=== PATIENT | female | born 1980 | race African-American/Black ===

== ENCOUNTER → 2017-12-13 | Outpatient (CLI) | payer OTHER | LOC: RAD 08:28 | DX: N64.4 Mastodynia (principal) ==

== ENCOUNTER 2019-10-15 06:55 | Emergency (ER) | payer OTHER ==
[~2019-10-15] VITALS: Ht 167.6 cm; Wt 95.3 kg
[2019-10-15] MEDS ORDERED: LISINOPRIL20 MG PO (07:02)
[2019-10-15] MEDS ORDERED: AUGMENTIN 875-1 EACH PO (07:19)
[2019-10-15 07:30] VITALS: BP 132/88
== END 2019-10-15 07:30 | disposition home or self-care (01) ==
LOC: ER 06:55
DX: L03.213 Periorbital cellulitis (principal); I10 Essential (primary) hypertension; Z79.899 Other long term (current) drug therapy

== ENCOUNTER → 2020-09-01 | Outpatient (CLI) | payer OTHER ==
[~2020-09-01] MED LIST: AUGMENTIN 875-1 EACH PO; LISINOPRIL20 MG PO
== END ==
LOC: LAB 09:14
PROVIDERS: ATTEND Nurse Practitioner
DX: Z20.822 Contact with and (suspected) exposure to COVID-19 (principal)

== ENCOUNTER 2020-12-11 12:18 | Emergency (ER) | payer OTHER ==
[~2020-12-11] VITALS: Ht 167.6 cm; Wt 108.9 kg
[2020-12-11] MEDS ORDERED: ZOFRAN ODT4 MG PO ×2 (13:36→13:47)
[2020-12-11] MEDS ORDERED: TESSALON PERLE100 MG PO ×2 (13:36→13:47)
[2020-12-11] MEDS ORDERED: VENTOLIN HFA INH8 GM INH (13:36)
[2020-12-11] MEDS ORDERED: VENTOLIN HFA 1818 GM INH (13:47)
[2020-12-11 13:53] VITALS: BP 139/87
== END 2020-12-11 13:54 | disposition home or self-care (01) ==
LOC: ER 12:18
DX: U07.1 COVID-19 (principal); R05 Cough; I10 Essential (primary) hypertension; Z79.899 Other long term (current) drug therapy